=== PATIENT | female | born 1960 | race Caucasian/White ===

== ENCOUNTER 2017-08-29 07:53 | Observation (INO) ==
[2017-08-29] MEDS ORDERED: ASPIRIN 325 MG TABLET PO STA (08:04)
[2017-08-29] MEDS ORDERED: ENOXAPARIN 100 MG/ML SYRINGE SUBCUT STA (08:04)
[2017-08-29] MEDS ORDERED: NITROGLYCERIN SL 0.4 MG TABLET SL PRN ×2 (08:04→16:01)
[2017-08-29] MEDS ORDERED: ONDANSETRON 4 MG/2 ML VIAL IV PRN (08:05)
[2017-08-29 08:18] LABS: Basophils % 0.4 % (0.0-0.8); Eosinophils # 0.5 10*3/uL (0.0-0.87); Hematocrit 38.9 VOL% (35.7-47.0); Hemoglobin 13.7 GM/DL (12.0-16.0); Immature Granulocytes % 0.3 %; Immature Granulocytes Absolute 0.03 #; Lymphocytes # 1.4 10*3/uL (1.4-4.0); Lymphocytes % 12.6 % (21.3-54.2); Mean Corpuscular HGB Conc 35.2 GM/DL (32-36); Mean Corpuscular Hemoglobin 31 PG (27-34); Mean Platelet Volume 10.4 FL (9.6-12.0); Monocytes # 0.6 10*3/uL (0.11-0.8); Monocytes % 5.6 % (1.7-12.7); Neutrophils # 8.8 10*3/uL (1.4-7.4); Neutrophils % 77.1 % (38.7-73.9); Platelet Count 235 T/CUMM (130-400); Red Blood Count 4.37 MC/CUMM (3.8-5.5); Red Cell Distribution Width 13.6 % (9.3-17.3); White Blood Count 11.4 T/CUMM (4-12)
[2017-08-29 08:28] LABS: PT Patient Result 10.1 SECS
[2017-08-29] MEDS ORDERED: ENOXAPARIN 80 MG/0.8 ML SYRINGE SUBCUT ONE (08:31)
[2017-08-29] MEDS ORDERED: ONDANSETRON 4 MG/2 ML VIAL ONE (08:31)
[2017-08-29] MEDS ORDERED: ASPIRIN 325 MG TABLET ONE (08:32)
[2017-08-29] MEDS ORDERED: MORPHINE 2 MG/1 ML SYRINGE ONE (08:32)
[2017-08-29] MEDS: MORPHINE 2 MG/1 ML SYRINGE IV PRN (08:46)
[2017-08-29 08:55] LABS: Albumin 3.5 G/DL (3.4-5.0); Bilirubin,Total 0.7 MG/DL (0.2-1.0); Osmolality,Calculated 278.1 MOS/KG (273-304); Potassium 4.5 MMOL/L (3.5-5.1); Total Protein 7.2 G/DL (6.4-8.3)
[2017-08-29 09:06] LABS: Apearance,Urine Slightly Hazy (Clear); Bacteria,Urine Occasional /HPF (Few); Bilirubin,Urine Negative (Negative); Blood, Urine Negative (Negative); Glucose,Urine (UA) Negative (Negative); Hyaline Casts,Urine 1 /LPF (0-3); Ketones,Urine 5 mg/dL (Negative); Mucus,Urine Occasional /LPF (Occasional); Nitrite,Urine Negative (Negative); Protein,Urine Negative; RBC,Urine 2 /HPF (0-4); Squamous Epithelial Cell,Urine Occasional /HPF (0-10); Urine Color Yellow (Yellow); Urine Specific Gravity 1.015 (1.001-1.035); Urine Urobilinogen < 2.0 EU/DL (0.2-1.0); WBC,Urine 3 /HPF (0-6)
[2017-08-29 09:11] LABS: Barbiturates Screen,Urine Negative (Negative); Benzodiazepines Screen,Urine Negative (Negative); Cannabinoid Screen,Urine Negative (Negative); Opiate Screen,Urine Negative (Negative); Phencyclidine Screen,Urine Negative (Negative)
[2017-08-29] MEDS ORDERED: DEXTROSE 50% 25 GM/50 ML VIAL IV PRN ×2 (10:53→15:57)
[2017-08-29] MEDS ORDERED: GLUCAGON 1 MG VIAL IM PRN ×2 (10:53→15:57)
[2017-08-29] MEDS: SODIUM CHLORIDE 0.9% 1,000 ML IV SCH (11:21)
[2017-08-29] MEDS: INSULIN REGULAR 100 UNIT/ML SUBCUT SCH ×3 (11:23→21:14)
[2017-08-29] MEDS ORDERED: INFLUENZA VIRUS VACCINE 0.5 ML SYRINGE IM ONE (12:00)
[2017-08-29] MEDS ORDERED: PNEUMOCOCCAL VACCINE (23 VALENT) 0.5 ML VIAL IM ONE (12:00)
[2017-08-29] MEDS ORDERED: POTASSIUM CHLORIDE RIDER 10 MEQ in PREMIX 1 EACH IV PRN (12:37)
[2017-08-29] MEDS ORDERED: diphenhydrAMINE CAP 25 MG CAPSULE PO ONE (12:37)
[2017-08-29] MEDS ORDERED: MAGNESIUM SULF RIDER 2 GM in PREMIX 1 EACH IV PRN (12:37)
[2017-08-29] MEDS ORDERED: DIAZEPAM 5 MG TABLET PO ONE (12:37)
[2017-08-29] MEDS ORDERED: HEPARIN/NACL 0.9% 2 UNITS/ML 1,000 ML IV ONE (13:56)
[2017-08-29] MEDS ORDERED: LIDOCAINE 1% 20 ML VIAL ONE (13:56)
[2017-08-29] MEDS ORDERED: HYDROmorphone 2 MG/1 ML VIAL ONE (14:24)
[2017-08-29] MEDS ORDERED: MIDAZOLAM 2 MG/2 ML VIAL ONE (14:25)
[2017-08-29] MEDS ORDERED: BIVALIRUDIN 250 MG VIAL IV ONE (14:58)
[2017-08-29] MEDS ORDERED: DEXTROSE 50% 25 GM/50 ML VIAL IV ONE (15:15)
[2017-08-29] MEDS ORDERED: ACETAMINOPHEN 325 MG TABLET PO PRN (15:57)
[2017-08-29] MEDS ORDERED: ZALEPLON 5 MG CAPSULE PO PRN (15:57)
[2017-08-29] MEDS ORDERED: SODIUM CHLORIDE 0.9% 1,000 ML IV SCH (16:00)
[2017-08-29] MEDS ORDERED: ATORVASTATIN 20 MG TABLET PO SCH (21:00)
[2017-08-29] MEDS: TICAGRELOR 90 MG TABLET PO SCH (21:15)
[2017-08-30] MEDS: SODIUM CHLORIDE 0.9% 1,000 ML IV SCH (00:17)
[2017-08-30 04:47] LABS: Blood Urea Nitrogen 14 MG/DL (7-18); Calcium 8.6 MG/DL (8.5-10.1); Glucose 120 MG/DL (74-106); Osmolality,Calculated 278.5 MOS/KG (273-304); Sodium 139 MMOL/L (136-145)
[2017-08-30 04:53] LABS: Troponin I Only 0.268 NG/ML (0.00-0.045)
[2017-08-30 08:27] VITALS: BP 129/67
[2017-08-30] MEDS: TICAGRELOR 90 MG TABLET PO SCH (08:53)
[2017-08-30] MEDS ORDERED: LISINOPRIL/HCTZ 20-12.5 MG TABLET PO SCH (09:00)
[2017-08-30] MEDS ORDERED: ASPIRIN EC 81 MG TABLET PO SCH (09:00)
[2017-08-30] MEDS ORDERED: METOPROLOL SUCCINATE XL 25 MG TABLET PO SCH (09:00)
[2017-08-30] MEDS: MORPHINE 2 MG/1 ML SYRINGE IV PRN (10:44)
[2017-08-30] MEDS: INSULIN REGULAR 100 UNIT/ML SUBCUT SCH (10:55)
== END 2017-08-30 13:24 | disposition home or self-care (01) ==
LOC: EDUNIT# → EDBD → N.ED 07:53 → N.EDINP 07:53 → N.5E 10:36 → N.TELEN 16:44
PROVIDERS: ADMIT Internal Medicine Geriatric Medicine; ATTEND Internal Medicine Geriatric Medicine
PROC: CLCCHCL (ICD-10-PCS; 2017-08-29 13:15)

== ENCOUNTER 2017-09-02 11:42 | Inpatient (IN) ==
[2017-09-02] MEDS ORDERED: ENOXAPARIN 100 MG/ML SYRINGE SUBCUT STA (12:05)
[2017-09-02] MEDS ORDERED: ASPIRIN 325 MG TABLET PO STA (12:05)
[2017-09-02] MEDS ORDERED: ASPIRIN 325 MG TABLET ONE (12:12)
[2017-09-02] MEDS ORDERED: ENOXAPARIN 100 MG/ML SYRINGE SUBCUT ONE (12:12)
[2017-09-02 12:43] LABS: Basophils # 0.1 10*3/uL (0.0-0.2); Basophils % 0.4 % (0.0-0.8); Eosinophils # 0.3 10*3/uL (0.0-0.87); Eosinophils % 2.3 % (0.00-10.9); Hemoglobin 13.3 GM/DL (12.0-16.0); Immature Granulocytes % 0.5 %; Immature Granulocytes Absolute 0.06 #; Lymphocytes # 1.7 10*3/uL (1.4-4.0); Lymphocytes % 13.6 % (21.3-54.2); Mean Corpuscular HGB Conc 35.9 GM/DL (32-36); Mean Corpuscular Hemoglobin 31 PG (27-34); Mean Corpuscular Volume 86.9 FL (87-102); Mean Platelet Volume 10.7 FL (9.6-12.0); Monocytes # 0.9 10*3/uL (0.11-0.8); Monocytes % 7.4 % (1.7-12.7); Neutrophils # 9.2 10*3/uL (1.4-7.4); Neutrophils % 75.8 % (38.7-73.9); Platelet Count 246 T/CUMM (130-400); Red Blood Count 4.26 MC/CUMM (3.8-5.5); Red Cell Distribution Width 13.2 % (9.3-17.3); White Blood Count 12.1 T/CUMM (4-12)
[2017-09-02 12:57] LABS: Albumin 3.8 G/DL (3.4-5.0); Bilirubin,Total 0.9 MG/DL (0.2-1.0); Calcium 9.5 MG/DL (8.5-10.1); Magnesium 2.1 MG/DL (1.8-2.4); Osmolality,Calculated 276.2 MOS/KG (273-304); Potassium 4.4 MMOL/L (3.5-5.1)
[2017-09-02] MEDS ORDERED: ACETAMINOPHEN 325 MG TABLET PO PRN (13:58)
[2017-09-02] MEDS ORDERED: NITROGLYCERIN SL 0.4 MG TABLET SL PRN (15:36)
[2017-09-02] MEDS ORDERED: PNEUMOCOCCAL VACCINE (13 VALENT) 0.5 ML SYRINGE IM ONE (15:48)
[2017-09-02] MEDS ORDERED: ONDANSETRON 4 MG/2 ML VIAL IV PRN (16:21)
[2017-09-02] MEDS ORDERED: CLOPIDOGREL 300 MG TABLET PO ONE (16:21)
[2017-09-02] MEDS ORDERED: diphenhydrAMINE CAP 25 MG CAPSULE PO PRN (16:22)
[2017-09-02] MEDS: PANTOPRAZOLE 20 MG TABLET PO SCH (17:23)
[2017-09-02] MEDS ORDERED: TICAGRELOR 90 MG TABLET PO SCH (21:00)
[2017-09-02] MEDS ORDERED: ATORVASTATIN 20 MG TABLET PO SCH (21:00)
[2017-09-03] MEDS ORDERED: ASPIRIN EC 81 MG TABLET PO SCH (09:00)
[2017-09-03] MEDS ORDERED: LISINOPRIL/HCTZ 20-12.5 MG TABLET PO SCH (09:00)
[2017-09-03] MEDS ORDERED: METOPROLOL SUCCINATE XL 25 MG TABLET PO SCH (09:00)
[2017-09-03] MEDS ORDERED: CLOPIDOGREL 75 MG TABLET PO SCH (09:00)
[2017-09-03] MEDS: PANTOPRAZOLE 20 MG TABLET PO SCH (09:13)
[2017-09-03] MEDS ORDERED: ENOXAPARIN 40 MG/0.4 ML SYRINGE SUBCUT SCH (12:00)
[2017-09-03 13:14] VITALS: BP 166/72
== END 2017-09-03 15:27 | disposition home or self-care (01) | DRG 313 ==
LOC: EDUNIT# → EDBD → N.ED 11:42 → N.EDINP 13:26 → N.TELEN 15:23
PROVIDERS: ADMIT Internal Medicine Geriatric Medicine; ATTEND Internal Medicine Geriatric Medicine

== ENCOUNTER 2020-11-06 11:59 | Inpatient (IN) ==
[2020-11-06 15:39] LABS: Basophils % 0.3 % (0.0-0.8); Eosinophils # 0.1 10*3/uL (0.0-0.87); Eosinophils % 1.1 % (0.00-10.9); Hematocrit 49.8 VOL% (35.7-47.0); Hemoglobin 16.8 GM/DL (12.0-16.0); Immature Granulocytes % 0.5 %; Immature Granulocytes Absolute 0.04 #; Lymphocytes # 1.2 10*3/uL (1.4-4.0); Mean Corpuscular HGB Conc 33.7 GM/DL (32-36); Mean Corpuscular Volume 88.5 FL (87-102); Mean Platelet Volume 10.7 FL (9.6-12.0); Monocytes % 4.6 % (1.7-12.7); Neutrophils % 79.5 % (38.7-73.9); Platelet Count 207 T/CUMM (130-400); Red Blood Count 5.63 MC/CUMM (3.8-5.5); White Blood Count 8.7 T/CUMM (4-12)
[2020-11-06 15:45] LABS: Bilirubin,Urine Negative (Negative); Blood, Urine Negative (Negative); Glucose,Urine (UA) >=500 mg/dL (Negative); Ketones,Urine 80 mg/dL (Negative); Mucus,Urine Occasional /LPF (Occasional); Nitrite,Urine Negative (Negative); Protein,Urine 100 MG/DL; Squamous Epithelial Cell,Urine Occasional /HPF (0-10); Urine Appearance CLEAR (Clear); Urine Color Yellow (Yellow); Urine Specific Gravity 1.031 (1.001-1.035); Urine Urobilinogen < 2.0 EU/DL (0.2-1.0)
[2020-11-06 15:49] LABS: Barbiturates Screen,Urine Negative (Negative); Benzodiazepines Screen,Urine Negative (Negative); Cannabinoid Screen,Urine Negative (Negative); Opiate Screen,Urine Negative (Negative); Phencyclidine Screen,Urine Negative (Negative)
[2020-11-06 16:03] LABS: Alanine Aminotransferase 51 U/L (13-56); Albumin 4.2 G/DL (3.4-5.0); Alkaline Phosphatase 141 U/L (45-117); Aspartate Amino Transferase 40 U/L (0-37); Blood Urea Nitrogen 11 MG/DL (7-18); Carbon Dioxide 25 MMOL/L (21-32); Estimated Glom Filtration Rate 71 ML/MIN; Glucose 289 MG/DL (74-106); Osmolality,Calculated 275.4 MOS/KG (273-304); Potassium 4.2 MMOL/L (3.5-5.1); Sodium 133 MMOL/L (136-145); Total Protein 8.8 G/DL (6.4-8.3)
[2020-11-06] MEDS ORDERED: DEXTROSE 50% 25 GM/50 ML VIAL IV PRN (16:50)
[2020-11-06] MEDS ORDERED: ONDANSETRON 4 MG/2 ML VIAL IV PRN (16:50)
[2020-11-06] MEDS ORDERED: GLUCAGON 1 MG VIAL IM PRN (16:50)
[2020-11-06] MEDS ORDERED: ASPIRIN CHEW 81 MG TABLET PO STA (17:01)
[2020-11-06] MEDS ORDERED: LABETALOL 20 MG/4 ML SYRINGE IV PRN (17:06)
[2020-11-06] MEDS: SODIUM CHLORIDE 0.9% 1,000 ML IV SCH (17:24)
[2020-11-06] MEDS: INSULIN LISPRO 100 UNIT/ML SUBCUT SCH (18:37)
[2020-11-06] MEDS: ATORVASTATIN 20 MG TABLET PO SCH (20:54)
[2020-11-06] MEDS ORDERED: ATORVASTATIN 40 MG TABLET PO SCH (21:00)
[2020-11-06] MEDS ORDERED: ACETAMINOPHEN 650 MG SUPP RECTAL PRN (23:19)
[2020-11-07] MEDS: INSULIN LISPRO 100 UNIT/ML SUBCUT SCH ×4 (00:16→17:45)
[2020-11-07] MEDS: SODIUM CHLORIDE 0.9% 1,000 ML IV SCH ×2 (05:03→15:33)
[2020-11-07 06:04] LABS: Basophils % 0.4 % (0.0-0.8); Eosinophils # 0.2 10*3/uL (0.0-0.87); Eosinophils % 3.1 % (0.00-10.9); Hematocrit 45.2 VOL% (35.7-47.0); Hemoglobin 15.1 GM/DL (12.0-16.0); Immature Granulocytes % 0.3 %; Immature Granulocytes Absolute 0.02 #; Lymphocytes # 1.8 10*3/uL (1.4-4.0); Lymphocytes % 23.6 % (21.3-54.2); Mean Corpuscular HGB Conc 33.4 GM/DL (32-36); Mean Corpuscular Volume 87.9 FL (87-102); Mean Platelet Volume 10.6 FL (9.6-12.0); Neutrophils % 64.6 % (38.7-73.9); Platelet Count 216 T/CUMM (130-400); Red Blood Count 5.14 MC/CUMM (3.8-5.5); White Blood Count 7.7 T/CUMM (4-12)
[2020-11-07 06:29] LABS: Calcium 9.1 MG/DL (8.5-10.1); Potassium 3.6 MMOL/L (3.5-5.1); Risk Ratio 3.82; VLDL CHOLESTEROL 23.8 MG/DL
[2020-11-07] MEDS ORDERED: DIAZEPAM 10 MG/2 ML SYRINGE IV PRN (08:50)
[2020-11-07] MEDS: MORPHINE 4 MG/1 ML VIAL IV PRN ×3 (10:01→21:25)
[2020-11-07] MEDS: ATORVASTATIN 20 MG TABLET PO SCH (21:28)
[2020-11-08] MEDS: INSULIN LISPRO 100 UNIT/ML SUBCUT SCH ×5 (00:39→23:44)
[2020-11-08] MEDS: MORPHINE 4 MG/1 ML VIAL IV PRN ×5 (05:38→23:44)
[2020-11-08] MEDS: ATORVASTATIN 20 MG TABLET PO SCH (20:27)
[2020-11-09] MEDS: INSULIN LISPRO 100 UNIT/ML SUBCUT SCH ×3 (05:31→17:29)
[2020-11-09] MEDS: MORPHINE 4 MG/1 ML VIAL IV PRN ×4 (07:36→21:07)
[2020-11-09] MEDS: METOPROLOL SUCCINATE XL 25 MG TABLET PO SCH (12:30)
[2020-11-09] MEDS: ATORVASTATIN 20 MG TABLET PO SCH (21:07)
[2020-11-10] MEDS: INSULIN LISPRO 100 UNIT/ML SUBCUT SCH ×4 (00:08→18:59)
[2020-11-10] MEDS: MORPHINE 4 MG/1 ML VIAL IV PRN ×5 (02:09→19:41)
[2020-11-10] MEDS ORDERED: METOPROLOL SUCCINATE XL 25 MG TABLET PO SCH (09:00)
[2020-11-10] MEDS: CLOPIDOGREL 75 MG TABLET PO SCH (10:14)
[2020-11-10] MEDS: ASPIRIN EC 81 MG TABLET PO SCH (10:14)
[2020-11-10] MEDS: METOPROLOL SUCCINATE XL 25 MG TABLET PO SCH (10:14)
[2020-11-10] MEDS: ATORVASTATIN 40 MG TABLET PO SCH (20:49)
[2020-11-11] MEDS: MORPHINE 4 MG/1 ML VIAL IV PRN ×4 (01:51→20:38)
[2020-11-11] MEDS: INSULIN LISPRO 100 UNIT/ML SUBCUT SCH ×4 (02:25→18:37)
[2020-11-11] MEDS: CLOPIDOGREL 75 MG TABLET PO SCH (08:03)
[2020-11-11] MEDS: ASPIRIN EC 81 MG TABLET PO SCH (08:03)
[2020-11-11] MEDS: METOPROLOL SUCCINATE XL 25 MG TABLET PO SCH (08:04)
[2020-11-11] MEDS ORDERED: ACETAMINOPHEN 325 MG TABLET PO PRN (13:53)
[2020-11-11] MEDS: ATORVASTATIN 40 MG TABLET PO SCH (20:28)
[2020-11-12] MEDS: INSULIN LISPRO 100 UNIT/ML SUBCUT SCH ×4 (00:01→18:13)
[2020-11-12] MEDS: MORPHINE 4 MG/1 ML VIAL IV PRN (03:01)
[2020-11-12] MEDS: ASPIRIN EC 81 MG TABLET PO SCH (09:04)
[2020-11-12] MEDS: GABAPENTIN 100 MG CAPSULE PO SCH ×3 (09:04→20:03)
[2020-11-12] MEDS: CLOPIDOGREL 75 MG TABLET PO SCH (09:05)
[2020-11-12] MEDS: METOPROLOL SUCCINATE XL 25 MG TABLET PO SCH (09:05)
[2020-11-12] MEDS ORDERED: ZINC OXIDE PASTE 113 GM TUBE TOP PRN (16:01)
[2020-11-12] MEDS: ATORVASTATIN 40 MG TABLET PO SCH (20:03)
[2020-11-13] MEDS: INSULIN LISPRO 100 UNIT/ML SUBCUT SCH ×4 (01:17→17:37)
[2020-11-13] MEDS: METOPROLOL SUCCINATE XL 25 MG TABLET PO SCH (09:34)
[2020-11-13] MEDS: GABAPENTIN 100 MG CAPSULE PO SCH ×3 (09:34→20:10)
[2020-11-13] MEDS: ASPIRIN EC 81 MG TABLET PO SCH (09:34)
[2020-11-13] MEDS: CLOPIDOGREL 75 MG TABLET PO SCH (09:34)
[2020-11-13] MEDS: ATORVASTATIN 40 MG TABLET PO SCH (20:11)
[2020-11-14] MEDS: INSULIN LISPRO 100 UNIT/ML SUBCUT SCH ×3 (00:22→12:26)
[2020-11-14] MEDS: METOPROLOL SUCCINATE XL 25 MG TABLET PO SCH (08:46)
[2020-11-14] MEDS: GABAPENTIN 100 MG CAPSULE PO SCH (08:46)
[2020-11-14] MEDS: CLOPIDOGREL 75 MG TABLET PO SCH (08:46)
[2020-11-14] MEDS: ASPIRIN EC 81 MG TABLET PO SCH (08:46)
[2020-11-14 12:11] VITALS: BP 143/58
== END 2020-11-14 14:20 | disposition swing bed (61) | DRG 65 ==
LOC: N.EDINP 11:59 → N.ED 11:59 → N.EDINP 18:16 → N.5E 18:25 → SUATTDRO 11-07 16:12
PROVIDERS: ADMIT Internal Medicine Geriatric Medicine; ATTEND Internal Medicine

== ENCOUNTER 2020-12-28 18:48 | Observation (INO) ==
[2020-12-28] MEDS ORDERED: ONDANSETRON 4 MG/2 ML VIAL IV STA (19:18)
[2020-12-28 19:35] LABS: Basophils % 0.4 % (0.0-0.8); Eosinophils # 0.2 10*3/uL (0.0-0.87); Eosinophils % 1.6 % (0.00-10.9); Hematocrit 40.9 VOL% (35.7-47.0); Immature Granulocytes % 0.5 %; Immature Granulocytes Absolute 0.05 #; Lymphocytes # 1.2 10*3/uL (1.4-4.0); Lymphocytes % 11.7 % (21.3-54.2); Mean Corpuscular HGB Conc 34.2 GM/DL (32-36); Mean Corpuscular Volume 89.7 FL (87-102); Mean Platelet Volume 10.5 FL (9.6-12.0); Monocytes % 4.8 % (1.7-12.7); Platelet Count 256 T/CUMM (130-400); Red Blood Count 4.56 MC/CUMM (3.8-5.5); Red Cell Distribution Width 14.1 % (9.3-17.3); White Blood Count 9.9 T/CUMM (4-12)
[2020-12-28 19:46] LABS: PT Patient Result 10.6 SECS (9.8-11.9); Partial Thromboplastin Time 24.7 SECS (23.9-33.8)
[2020-12-28 19:51] LABS: Alanine Aminotransferase 31 U/L (13-56); Albumin 3.8 G/DL (3.4-5.0); Alkaline Phosphatase 116 U/L (45-117); Aspartate Amino Transferase 35 U/L (0-37); Blood Urea Nitrogen 10 MG/DL (7-18); Calcium 8.8 MG/DL (8.5-10.1); Carbon Dioxide 23 MMOL/L (21-32); Estimated Glom Filtration Rate 92 ML/MIN; Glucose 280 MG/DL (74-106); Osmolality,Calculated 274.4 MOS/KG (273-304); Potassium 3.7 MMOL/L (3.5-5.1); Sodium 133 MMOL/L (136-145); Total Protein 7.1 G/DL (6.4-8.2); Troponin I < 0.015 NG/ML (0.00-0.045)
[2020-12-28 19:56] LABS: Barbiturates Screen,Urine Negative (Negative); Benzodiazepines Screen,Urine Negative (Negative); Cannabinoid Screen,Urine Positive (Negative); Opiate Screen,Urine Positive (Negative); Phencyclidine Screen,Urine Negative (Negative)
[2020-12-28 22:47] LABS: Bacteria,Urine Occasional /HPF (Few); Bilirubin,Urine Negative (Negative); Blood, Urine Negative (Negative); Glucose,Urine (UA) >=500 mg/dL (Negative); Ketones,Urine 20 mg/dL (Negative); Mucus,Urine Occasional /LPF (Occasional); Nitrite,Urine Negative (Negative); Protein,Urine 100 MG/DL; RBC,Urine 1 /HPF (0-4); Squamous Epithelial Cell,Urine Few /HPF (0-10); Urine Appearance Slightly Hazy (Clear); Urine Color Yellow (Yellow); Urine Specific Gravity 1.021 (1.001-1.035); Urine Urobilinogen < 2.0 EU/DL (0.2-1.0); WBC,Urine 11 /HPF (0-6)
[2020-12-28] MEDS ORDERED: ONDANSETRON 4 MG/2 ML VIAL IV PRN (23:04)
[2020-12-28] MEDS ORDERED: DEXTROSE 50% 25 GM/50 ML VIAL IV PRN ×2 (23:04)
[2020-12-28] MEDS ORDERED: GLUCAGON 1 MG VIAL IM PRN (23:04)
[2020-12-29] MEDS: ENOXAPARIN 40 MG/0.4 ML SYRINGE SUBCUT SCH ×2 (00:18→23:09)
[2020-12-29 05:48] LABS: Basophils % 0.3 % (0.0-0.8); Eosinophils # 0.2 10*3/uL (0.0-0.87); Eosinophils % 2.2 % (0.00-10.9); Hematocrit 41.2 VOL% (35.7-47.0); Hemoglobin 13.9 GM/DL (12.0-16.0); Immature Granulocytes % 0.4 %; Immature Granulocytes Absolute 0.04 #; Lymphocytes # 1.9 10*3/uL (1.4-4.0); Lymphocytes % 18.5 % (21.3-54.2); Mean Corpuscular HGB Conc 33.7 GM/DL (32-36); Mean Corpuscular Volume 91.6 FL (87-102); Mean Platelet Volume 10.7 FL (9.6-12.0); Monocytes % 6.2 % (1.7-12.7); Neutrophils % 72.4 % (38.7-73.9); Platelet Count 250 T/CUMM (130-400); Red Cell Distribution Width 14.2 % (9.3-17.3); White Blood Count 10.1 T/CUMM (4-12)
[2020-12-29 06:16] LABS: Albumin 3.5 G/DL (3.4-5.0); Bilirubin,Total 1.2 MG/DL (0.2-1.0); Risk Ratio 3.62; VLDL CHOLESTEROL 35.6 MG/DL
[2020-12-29] MEDS: ASPIRIN EC 81 MG TABLET PO SCH (09:08)
[2020-12-29] MEDS: INSULIN LISPRO 100 UNIT/ML SUBCUT SCH ×2 (09:08→17:18)
[2020-12-29] MEDS: METOPROLOL SUCCINATE XL 25 MG TABLET PO SCH (09:08)
[2020-12-29] MEDS: CLOPIDOGREL 75 MG TABLET PO SCH (09:08)
[2020-12-29] MEDS ORDERED: LORazepam 0.5 MG TABLET PO ONE (12:38)
[2020-12-30 08:47] VITALS: BP 150/63
[2020-12-30] MEDS: METOPROLOL SUCCINATE XL 25 MG TABLET PO SCH (08:47)
[2020-12-30] MEDS: CLOPIDOGREL 75 MG TABLET PO SCH (08:47)
[2020-12-30] MEDS: ASPIRIN EC 81 MG TABLET PO SCH (08:47)
[2020-12-31] MEDS ORDERED: PNEUMOCOCCAL VACCINE (23 VALENT) 0.5 ML VIAL IM ONE (09:00)
== END 2020-12-30 10:45 | disposition home health service (06) ==
LOC: EDUNIT# → N.EDINP 18:48 → N.ED 18:48 → N.EDINP 12-29 01:11 → N.4E 12-29 01:44
PROVIDERS: ADMIT Internal Medicine Geriatric Medicine; ATTEND Internal Medicine Geriatric Medicine

== ENCOUNTER 2021-09-30 22:15 | Inpatient (IN) ==
[2021-09-30] MEDS ORDERED: HYDROmorphone 2 MG/1 ML VIAL IV STA (22:45)
[2021-09-30] MEDS ORDERED: ONDANSETRON 4 MG/2 ML VIAL IV STA (22:45)
[2021-09-30] MEDS ORDERED: KETOROLAC 30 MG/1 ML VIAL IV STA (22:45)
[2021-09-30] MEDS ORDERED: SODIUM CHLORIDE 0.9% 500 ML IV STA (22:45)
[2021-09-30 23:20] LABS: Basophils % 0.2 % (0.0-0.8); Eosinophils % 0.2 % (0.00-10.9); Hematocrit 45.4 VOL% (35.7-47.0); Hemoglobin 15.8 GM/DL (12.0-16.0); Immature Granulocytes % 0.5 %; Immature Granulocytes Absolute 0.06 #; Lymphocytes # 0.8 10*3/uL (1.4-4.0); Lymphocytes % 7.1 % (21.3-54.2); Mean Corpuscular HGB Conc 34.8 GM/DL (32-36); Mean Platelet Volume 10.5 FL (9.6-12.0); Platelet Count 215 T/CUMM (130-400); Red Blood Count 5.22 MC/CUMM (3.8-5.5); White Blood Count 11.6 T/CUMM (4-12)
[2021-09-30 23:38] LABS: Alanine Aminotransferase 28 U/L (13-56); Albumin 3.7 G/DL (3.4-5.0); Alkaline Phosphatase 98 U/L (45-117); Amylase 42 U/L (25-115); Aspartate Amino Transferase 22 U/L (0-37); Blood Urea Nitrogen 22 MG/DL (7-18); Calcium 9.4 MG/DL (8.5-10.1); Carbon Dioxide 24 MMOL/L (21-32); Estimated Glom Filtration Rate 68 ML/MIN; Glucose 290 MG/DL (74-106); Osmolality,Calculated 288.7 MOS/KG (273-304); Potassium 3.9 MMOL/L (3.5-5.1); Sodium 138 MMOL/L (136-145)
[2021-09-30 23:50] LABS: Bilirubin,Urine Negative (Negative); Blood, Urine Negative (Negative); Glucose,Urine (UA) >=500 mg/dL (Negative); Ketones,Urine 80 mg/dL (Negative); Nitrite,Urine Negative (Negative); Protein,Urine Negative; Squamous Epithelial Cell,Urine Occasional /HPF (0-10); Urine Appearance CLEAR (Clear); Urine Color Yellow (Yellow); Urine Specific Gravity 1.028 (1.001-1.035)
[2021-10-01] MEDS ORDERED: LORazepam 2 MG/1 ML VIAL ONE (01:38)
[2021-10-01] MEDS ORDERED: LORazepam 2 MG/1 ML VIAL IV STA (01:45)
[2021-10-01] MEDS ORDERED: GLUCAGON 1 MG VIAL IM PRN (02:54)
[2021-10-01] MEDS ORDERED: ONDANSETRON 4 MG/2 ML VIAL IV PRN (03:02)
[2021-10-01] MEDS ORDERED: LABETALOL 20 MG/4 ML SYRINGE IV PRN (03:25)
[2021-10-01] MEDS ORDERED: DEXTROSE 50% 25 GM/50 ML SYRINGE IV PRN (03:29)
[2021-10-01] MEDS: SODIUM CHLORIDE 0.9% 1,000 ML IV SCH (04:03)
[2021-10-01 07:40] LABS: Basophils % 0.2 % (0.0-0.8); Eosinophils # 0.1 10*3/uL (0.0-0.87); Eosinophils % 0.5 % (0.00-10.9); Hematocrit 41.9 VOL% (35.7-47.0); Hemoglobin 14.4 GM/DL (12.0-16.0); Immature Granulocytes % 0.3 %; Immature Granulocytes Absolute 0.03 #; Lymphocytes # 1.5 10*3/uL (1.4-4.0); Mean Corpuscular HGB Conc 34.4 GM/DL (32-36); Mean Corpuscular Volume 87.3 FL (87-102); Mean Platelet Volume 10.3 FL (9.6-12.0); Monocytes % 7.2 % (1.7-12.7); Neutrophils % 75.8 % (38.7-73.9); Platelet Count 222 T/CUMM (130-400); Red Cell Distribution Width 13.1 % (9.3-17.3); White Blood Count 9.2 T/CUMM (4-12)
[2021-10-01] MEDS: INSULIN REGULAR 100 UNIT/ML SUBCUT SCH ×4 (07:56→22:34)
[2021-10-01 08:01] LABS: Albumin 3.3 G/DL (3.4-5.0); Bilirubin,Total 0.4 MG/DL (0.20-1.00); Osmolality,Calculated 283.7 MOS/KG (273-304); Potassium 3.9 MMOL/L (3.5-5.1); Total Protein 6.6 G/DL (6.4-8.2)
[2021-10-01] MEDS ORDERED: BISACODYL 10 MG SUPP RECTAL ONE (08:33)
[2021-10-01] MEDS: ENOXAPARIN 40 MG/0.4 ML SYRINGE SUBCUT SCH (08:33)
[2021-10-01] MEDS: ASPIRIN 300 MG SUPP RECTAL SCH (10:16)
[2021-10-01] MEDS ORDERED: traMADol 50 MG TABLET PO PRN (10:19)
[2021-10-01] MEDS ORDERED: MAGNESIUM CITRATE 300 ML BOTTLE PO ONE (10:30)
[2021-10-01] MEDS ORDERED: LORazepam 2 MG/1 ML VIAL IV ONE (11:44)
[2021-10-01] MEDS: ATORVASTATIN 40 MG TABLET PO SCH (11:52)
[2021-10-01] MEDS: METOPROLOL SUCCINATE XL 25 MG TABLET PO SCH ×2 (11:52→21:42)
[2021-10-01] MEDS: CLOPIDOGREL 75 MG TABLET PO SCH (11:52)
[2021-10-01] MEDS: CITALOPRAM 20 MG TABLET PO SCH (11:52)
[2021-10-01] MEDS: PANTOPRAZOLE 40 MG TABLET PO SCH (11:53)
[2021-10-01] MEDS: metFORMIN 500 MG TABLET PO SCH ×2 (11:53→16:28)
[2021-10-01] MEDS: FAMOTIDINE 20 MG TABLET PO SCH ×2 (11:53→21:42)
[2021-10-01] MEDS: GABAPENTIN 300 MG CAPSULE PO SCH ×2 (16:28→21:42)
[2021-10-02] MEDS: SODIUM CHLORIDE 0.9% 1,000 ML IV SCH ×2 (02:46→11:57)
[2021-10-02 05:11] LABS: Basophils % 0.5 % (0.0-0.8); Eosinophils # 0.1 10*3/uL (0.0-0.87); Eosinophils % 1.6 % (0.00-10.9); Hematocrit 40.8 VOL% (35.7-47.0); Hemoglobin 13.8 GM/DL (12.0-16.0); Immature Granulocytes % 0.4 %; Immature Granulocytes Absolute 0.03 #; Lymphocytes % 24.9 % (21.3-54.2); Mean Corpuscular HGB Conc 33.8 GM/DL (32-36); Mean Corpuscular Volume 90.9 FL (87-102); Mean Platelet Volume 10.5 FL (9.6-12.0); Neutrophils % 64.6 % (38.7-73.9); Platelet Count 195 T/CUMM (130-400); Red Blood Count 4.49 MC/CUMM (3.8-5.5); Red Cell Distribution Width 13.2 % (9.3-17.3)
[2021-10-02 05:30] LABS: Albumin 3.1 G/DL (3.4-5.0); Bilirubin,Total 0.5 MG/DL (0.20-1.00); Calcium 8.7 MG/DL (8.5-10.1); Osmolality,Calculated 279.4 MOS/KG (273-304); Potassium 3.9 MMOL/L (3.5-5.1); Total Protein 6.1 G/DL (6.4-8.2)
[2021-10-02] MEDS: INSULIN REGULAR 100 UNIT/ML SUBCUT SCH ×4 (08:05→21:25)
[2021-10-02] MEDS: metFORMIN 500 MG TABLET PO SCH ×2 (11:59→18:40)
[2021-10-02] MEDS: CITALOPRAM 20 MG TABLET PO SCH (11:59)
[2021-10-02] MEDS: PANTOPRAZOLE 40 MG TABLET PO SCH (11:59)
[2021-10-02] MEDS: ASPIRIN 300 MG SUPP RECTAL SCH (11:59)
[2021-10-02] MEDS: FAMOTIDINE 20 MG TABLET PO SCH ×2 (11:59→20:09)
[2021-10-02] MEDS: CLOPIDOGREL 75 MG TABLET PO SCH (11:59)
[2021-10-02] MEDS: ATORVASTATIN 40 MG TABLET PO SCH (11:59)
[2021-10-02] MEDS: ENOXAPARIN 40 MG/0.4 ML SYRINGE SUBCUT SCH (11:59)
[2021-10-02] MEDS: GABAPENTIN 300 MG CAPSULE PO SCH ×3 (11:59→20:10)
[2021-10-02] MEDS: METOPROLOL SUCCINATE XL 25 MG TABLET PO SCH ×2 (12:06→20:10)
[2021-10-02] MEDS: CYPROHEPTADINE 4 MG TABLET PO SCH (20:09)
[2021-10-03 05:50] LABS: Basophils % 0.5 % (0.0-0.8); Eosinophils # 0.2 10*3/uL (0.0-0.87); Eosinophils % 2.7 % (0.00-10.9); Hemoglobin 13.1 GM/DL (12.0-16.0); Immature Granulocytes % 0.3 %; Immature Granulocytes Absolute 0.02 #; Lymphocytes # 1.9 10*3/uL (1.4-4.0); Lymphocytes % 30.7 % (21.3-54.2); Mean Corpuscular HGB Conc 34.5 GM/DL (32-36); Mean Corpuscular Volume 88.4 FL (87-102); Mean Platelet Volume 10.1 FL (9.6-12.0); Monocytes % 8.1 % (1.7-12.7); Neutrophils % 57.7 % (38.7-73.9); Platelet Count 191 T/CUMM (130-400); White Blood Count 6.3 T/CUMM (4-12)
[2021-10-03 06:07] LABS: Calcium 8.6 MG/DL (8.5-10.1); Osmolality,Calculated 277.4 MOS/KG (273-304); Potassium 3.3 MMOL/L (3.5-5.1)
[2021-10-03] MEDS: SODIUM CHLORIDE 0.9% 1,000 ML IV SCH (06:20)
[2021-10-03 06:30] LABS: Risk Ratio 2.86; VLDL Cholesterol 23.4 MG/DL
[2021-10-03] MEDS: INSULIN REGULAR 100 UNIT/ML SUBCUT SCH ×4 (07:50→20:45)
[2021-10-03] MEDS: CYPROHEPTADINE 4 MG TABLET PO SCH ×2 (09:17→20:00)
[2021-10-03] MEDS: FAMOTIDINE 20 MG TABLET PO SCH ×2 (09:18→20:00)
[2021-10-03] MEDS: PANTOPRAZOLE 40 MG TABLET PO SCH (09:18)
[2021-10-03] MEDS: POLYETHYLENE GLYCOL POWDER 17 GM PACK PO SCH (09:18)
[2021-10-03] MEDS: CITALOPRAM 20 MG TABLET PO SCH (09:18)
[2021-10-03] MEDS: ATORVASTATIN 40 MG TABLET PO SCH (09:18)
[2021-10-03] MEDS: metFORMIN 500 MG TABLET PO SCH ×2 (09:18→16:41)
[2021-10-03] MEDS: ASPIRIN EC 81 MG TABLET PO SCH (09:19)
[2021-10-03] MEDS: GABAPENTIN 300 MG CAPSULE PO SCH ×3 (09:19→20:00)
[2021-10-03] MEDS: CLOPIDOGREL 75 MG TABLET PO SCH (09:19)
[2021-10-03] MEDS: DAPAGLIFLOZIN 5 MG TABLET PO SCH (09:19)
[2021-10-03] MEDS: ENOXAPARIN 40 MG/0.4 ML SYRINGE SUBCUT SCH (09:19)
[2021-10-03] MEDS: METOPROLOL SUCCINATE XL 25 MG TABLET PO SCH (09:19)
[2021-10-03] MEDS ORDERED: POTASSIUM CHLORIDE 20 MEQ TABLET PO ONE (10:07)
[2021-10-04 05:41] LABS: Calcium 8.7 MG/DL (8.5-10.1); Potassium 3.7 MMOL/L (3.5-5.1)
[2021-10-04] MEDS: INSULIN REGULAR 100 UNIT/ML SUBCUT SCH ×4 (08:05→20:45)
[2021-10-04] MEDS: FAMOTIDINE 20 MG TABLET PO SCH ×2 (09:21→20:45)
[2021-10-04] MEDS: PANTOPRAZOLE 40 MG TABLET PO SCH (09:21)
[2021-10-04] MEDS: ASPIRIN EC 81 MG TABLET PO SCH (09:22)
[2021-10-04] MEDS: CITALOPRAM 20 MG TABLET PO SCH (09:22)
[2021-10-04] MEDS: ATORVASTATIN 40 MG TABLET PO SCH (09:22)
[2021-10-04] MEDS: CYPROHEPTADINE 4 MG TABLET PO SCH ×2 (09:22→20:45)
[2021-10-04] MEDS: metFORMIN 500 MG TABLET PO SCH ×2 (09:22→16:03)
[2021-10-04] MEDS: CLOPIDOGREL 75 MG TABLET PO SCH (09:22)
[2021-10-04] MEDS: GABAPENTIN 300 MG CAPSULE PO SCH ×3 (09:22→20:45)
[2021-10-04] MEDS: METOPROLOL SUCCINATE XL 25 MG TABLET PO SCH (09:22)
[2021-10-04] MEDS: DAPAGLIFLOZIN 5 MG TABLET PO SCH (09:23)
[2021-10-04] MEDS: ENOXAPARIN 40 MG/0.4 ML SYRINGE SUBCUT SCH (09:23)
[2021-10-04] MEDS: POLYETHYLENE GLYCOL POWDER 17 GM PACK PO SCH (09:24)
[2021-10-04] MEDS: LOSARTAN 50 MG TABLET PO SCH (11:50)
[2021-10-05 05:57] LABS: Calcium 8.5 MG/DL (8.5-10.1); Osmolality,Calculated 280.5 MOS/KG (273-304); Potassium 3.4 MMOL/L (3.5-5.1)
[2021-10-05] MEDS: ENOXAPARIN 40 MG/0.4 ML SYRINGE SUBCUT SCH (11:25)
[2021-10-05] MEDS: metFORMIN 500 MG TABLET PO SCH ×2 (11:30→17:23)
[2021-10-05] MEDS: GABAPENTIN 300 MG CAPSULE PO SCH ×3 (11:31→20:50)
[2021-10-05] MEDS: FAMOTIDINE 20 MG TABLET PO SCH ×2 (11:31→20:49)
[2021-10-05] MEDS: CLOPIDOGREL 75 MG TABLET PO SCH (11:31)
[2021-10-05] MEDS: DAPAGLIFLOZIN 5 MG TABLET PO SCH (11:31)
[2021-10-05] MEDS: PANTOPRAZOLE 40 MG TABLET PO SCH (11:32)
[2021-10-05] MEDS: ASPIRIN EC 81 MG TABLET PO SCH (11:32)
[2021-10-05] MEDS: LOSARTAN 50 MG TABLET PO SCH (11:33)
[2021-10-05] MEDS: ATORVASTATIN 40 MG TABLET PO SCH (11:33)
[2021-10-05] MEDS: CITALOPRAM 20 MG TABLET PO SCH (11:34)
[2021-10-05] MEDS: METOPROLOL SUCCINATE XL 25 MG TABLET PO SCH (11:34)
[2021-10-05] MEDS: INSULIN REGULAR 100 UNIT/ML SUBCUT SCH ×4 (11:37→20:50)
[2021-10-05] MEDS: POLYETHYLENE GLYCOL POWDER 17 GM PACK PO SCH (11:42)
[2021-10-05] MEDS: CYPROHEPTADINE 4 MG TABLET PO SCH ×2 (11:42→20:49)
[2021-10-06 07:46] LABS: Calcium 8.8 MG/DL (8.5-10.1); Osmolality,Calculated 279.4 MOS/KG (273-304); Potassium 3.5 MMOL/L (3.5-5.1)
[2021-10-06] MEDS: metFORMIN 500 MG TABLET PO SCH ×2 (10:27→16:38)
[2021-10-06] MEDS: FAMOTIDINE 20 MG TABLET PO SCH ×2 (10:27→20:58)
[2021-10-06] MEDS: CITALOPRAM 20 MG TABLET PO SCH (10:28)
[2021-10-06] MEDS: DAPAGLIFLOZIN 10 MG TABLET PO SCH (10:28)
[2021-10-06] MEDS: CYPROHEPTADINE 4 MG TABLET PO SCH ×2 (10:28→20:57)
[2021-10-06] MEDS: ASPIRIN EC 81 MG TABLET PO SCH (10:28)
[2021-10-06] MEDS: ATORVASTATIN 40 MG TABLET PO SCH (10:29)
[2021-10-06] MEDS: PANTOPRAZOLE 40 MG TABLET PO SCH (10:29)
[2021-10-06] MEDS: METOPROLOL SUCCINATE XL 25 MG TABLET PO SCH (10:29)
[2021-10-06] MEDS: LOSARTAN 25 MG TABLET PO SCH (10:29)
[2021-10-06] MEDS: GABAPENTIN 300 MG CAPSULE PO SCH ×3 (10:30→20:57)
[2021-10-06] MEDS: ENOXAPARIN 40 MG/0.4 ML SYRINGE SUBCUT SCH (10:30)
[2021-10-06] MEDS: CLOPIDOGREL 75 MG TABLET PO SCH (10:30)
[2021-10-06] MEDS: INSULIN REGULAR 100 UNIT/ML SUBCUT SCH ×3 (12:36→20:50)
[2021-10-06] MEDS: POLYETHYLENE GLYCOL POWDER 17 GM PACK PO SCH (12:36)
[2021-10-06] MEDS ORDERED: DEXTROSE 50% 25 GM/50 ML VIAL IV PRN (15:38)
[2021-10-07 05:24] LABS: Calcium 8.6 MG/DL (8.5-10.1); Osmolality,Calculated 284.1 MOS/KG (273-304); Potassium 3.7 MMOL/L (3.5-5.1)
[2021-10-07] MEDS: INSULIN REGULAR 100 UNIT/ML SUBCUT SCH ×2 (08:11→11:39)
[2021-10-07] MEDS: LOSARTAN 25 MG TABLET PO SCH (09:47)
[2021-10-07] MEDS: METOPROLOL SUCCINATE XL 25 MG TABLET PO SCH (09:48)
[2021-10-07] MEDS: ASPIRIN EC 81 MG TABLET PO SCH (09:48)
[2021-10-07] MEDS: CITALOPRAM 20 MG TABLET PO SCH (09:48)
[2021-10-07] MEDS: FAMOTIDINE 20 MG TABLET PO SCH (09:48)
[2021-10-07] MEDS: PANTOPRAZOLE 40 MG TABLET PO SCH (09:48)
[2021-10-07] MEDS: metFORMIN 500 MG TABLET PO SCH (09:48)
[2021-10-07] MEDS: CLOPIDOGREL 75 MG TABLET PO SCH (09:48)
[2021-10-07] MEDS: GABAPENTIN 300 MG CAPSULE PO SCH (09:48)
[2021-10-07] MEDS: ENOXAPARIN 40 MG/0.4 ML SYRINGE SUBCUT SCH (09:49)
[2021-10-07] MEDS: DAPAGLIFLOZIN 10 MG TABLET PO SCH (09:49)
[2021-10-07] MEDS: CYPROHEPTADINE 4 MG TABLET PO SCH (09:49)
[2021-10-07] MEDS: ATORVASTATIN 40 MG TABLET PO SCH (09:49)
[2021-10-07] MEDS: POLYETHYLENE GLYCOL POWDER 17 GM PACK PO SCH (10:21)
[2021-10-07 12:05] VITALS: BP 148/73
== END 2021-10-07 17:59 | DRG 45 ==
LOC: EDUNIT# → EDBD → N.EDINP 22:15 → N.ED 22:15 → SUATTDRO 10-01 02:54 → N.TELES 10-01 05:45 → SUATTDRO 10-01 08:35
PROVIDERS: ADMIT Internal Medicine; ATTEND Hospitalist

== ENCOUNTER 2022-02-09 00:50 | Observation (INO) ==
[2022-02-09] MEDS ORDERED: ORPHENADRINE 60 MG/2 ML VIAL IV STA (01:15)
[2022-02-09] MEDS ORDERED: HYDROmorphone 1 MG/1 ML SYRINGE IV STA (01:15)
[2022-02-09] MEDS ORDERED: ONDANSETRON 4 MG/2 ML VIAL IV ONE (01:15)
[2022-02-09 01:37] LABS: Basophils % 0.3 % (0.0-0.8); Eosinophils # 0.1 10*3/uL (0.0-0.87); Eosinophils % 0.8 % (0.00-10.9); Hemoglobin 14.7 GM/DL (12.0-16.0); Immature Granulocytes % 0.3 %; Immature Granulocytes Absolute 0.04 #; Lymphocytes # 1.3 10*3/uL (1.4-4.0); Lymphocytes % 10.5 % (21.3-54.2); Mean Corpuscular HGB Conc 33.4 GM/DL (32-36); Mean Corpuscular Volume 89.1 FL (87-102); Mean Platelet Volume 10.3 FL (9.6-12.0); Monocytes # 0.5 10*3/uL (0.11-0.8); Monocytes % 4.3 % (1.7-12.7); Neutrophils % 83.8 % (38.7-73.9); Platelet Count 245 T/CUMM (130-400); Red Blood Count 4.94 MC/CUMM (3.8-5.5); Red Cell Distribution Width 13.5 % (9.3-17.3); White Blood Count 11.9 T/CUMM (4-12)
[2022-02-09 02:13] LABS: Bilirubin,Total 0.6 MG/DL (0.20-1.00); Calcium 9.7 MG/DL (8.5-10.1); Osmolality,Calculated 283.5 MOS/KG (273-304); Potassium 3.9 MMOL/L (3.5-5.1); Total Protein 7.2 G/DL (6.4-8.2)
[2022-02-09] MEDS ORDERED: DEXTROSE 10% 250 ML BAG IV PRN (03:36)
[2022-02-09] MEDS ORDERED: hydrALAZINE 20 MG/1 ML VIAL IV PRN (03:36)
[2022-02-09] MEDS ORDERED: GLUCAGON 1 MG VIAL IM PRN (03:36)
[2022-02-09] MEDS ORDERED: ONDANSETRON 4 MG/2 ML VIAL IV PRN (03:36)
[2022-02-09] MEDS ORDERED: ACETAMINOPHEN 325 MG TABLET PO PRN (03:36)
[2022-02-09] MEDS ORDERED: MORPHINE 2 MG/1 ML SYRINGE IV PRN (03:36)
[2022-02-09] MEDS ORDERED: LOSARTAN 50 MG TABLET PO SCH (09:00)
[2022-02-09] MEDS ORDERED: PANTOPRAZOLE 40 MG TABLET PO SCH (09:00)
[2022-02-09] MEDS ORDERED: ASPIRIN CHEW 81 MG TABLET PO SCH (09:00)
[2022-02-09] MEDS ORDERED: CLOPIDOGREL 75 MG TABLET PO SCH (09:00)
[2022-02-09] MEDS ORDERED: hydroCHLOROthiazide 25 MG TABLET PO SCH (09:00)
[2022-02-09] MEDS ORDERED: METOPROLOL SUCCINATE XL 25 MG TABLET PO SCH (09:00)
[2022-02-09 14:15] VITALS: BP 136/73
[2022-02-09] MEDS ORDERED: METOPROLOL SUCCINATE XL 50 MG TABLET PO SCH (21:00)
[2022-02-09] MEDS ORDERED: ENOXAPARIN 40 MG/0.4 ML SYRINGE SUBCUT SCH (21:00)
== END 2022-02-09 13:52 | disposition home health service (06) ==
LOC: EDUNIT# → N.EDINP 00:50 → N.ED 00:50 → SUATTDRO 03:36 → N.EDINP 13:52
PROVIDERS: ADMIT Internal Medicine; ATTEND Internal Medicine